=== PATIENT | female | born 1970 | race Caucasian/White ===

== ENCOUNTER → 2020-10-15 | Day surgery (SDC) | payer OTHER ==
[2020-10-13 11:53] LABS: BASOPHILS % 0.7 % (0.0-1.0); EOSINOPHILS # (AUTO) 0.2 (0.0-0.4); EOSINOPHILS % 4.2 % (0.0-6.0); HEMOGLOBIN 12.9 g/dL (12.0-16.0); LYMPHOCYTES # (AUTO) 1.7 (1.0-3.2); MEAN CORPUSCULAR HEMOGLOBIN 28.9 pg (28-32); MEAN CORPUSCULAR HGB CONC 32.3 g/dL (31-35); MEAN CORPUSCULAR VOLUME 89.7 fL (81-99); MONOCYTES # (AUTO) 0.4 (0.2-0.8); MONOCYTES % 9.9 % (4.4-11.3); NEUTROPHILS # (AUTO) 1.7 (2.1-6.9); PLATELET COUNT 216 x10e3/uL (140-360); RED BLOOD COUNT 4.46 x10e6/uL (3.6-5.1); RED CELL DISTRIBUTION WIDTH 13.1 % (11.7-14.4)
[2020-10-13 12:13] LABS: CALCIUM 9.4 mg/dL (8.4-10.2); CREATININE, SERUM 0.62 mg/dL (0.57-1.11)
[~2020-10-15] MED LIST: ACETAMINOPHEN 1000 MG/100 ML 100 ML IV ONE; AMPICILLIN SOD 1 GM/NS 50ML 50 ML IV ONE; B&O 60MG R/S 60 MG SUPP PR ONE; BUPIVACAINE HCL 0.5% INJ 30 ML VIAL INJ ONE; FENTANYL CITRATE/PF 100MCG/2 ML INJ ONE; FLOMAX0.4 MG PO; FOLIC ACID0.4 MG PO; GABAPENTIN100 MG PO; GENTAMICIN 80MG/NS 100 ML 200 ML IV ONE; IOPAMIDOL 300MG/ML 50ML INFUS..BTL IV ONE; LIDOCAINE 2%/ EPINEPHRINE 20ML MDV ONE; LIDOCAINE HCL 2% LOCAL INJ 5 ML SDV VIAL INJ ONE; MIDAZOLAM HCL 2 MG/2 ML VIAL ONE; MOBIC7.5 MG PO; MULTI-VITAMIN1 EACH PO; ONDANSETRON HCL INJ 2MG/ML 2ML 2 MG/ML VIAL ONE; POVIDONE IODINE 0.05% 0.05 % ML PO ONE; PROPOFOL IV EMULSION 10 MG/ML 20 ML VIAL ONE; SEVOFLURANE INHAL SOLN 250 ML PEN BTL ONE; VIT B12 PO; VIT D2 PO; WELLBUTRIN XL150 MG PO
[2020-10-15 11:15] VITALS: BP 121/84
== END | disposition home or self-care (01) ==
LOC: OR 07:49
PROVIDERS: ATTEND Urology
DX: N39.0 Urinary tract infection, site not specified (principal); N36.41 Hypermobility of urethra; N81.10 Cystocele, unspecified; N95.2 Postmenopausal atrophic vaginitis; R27.0 Ataxia, unspecified; N31.2 Flaccid neuropathic bladder, not elsewhere classified; N81.89 Other female genital prolapse; G89.29 Other chronic pain; Z01.810 Encounter for preprocedural cardiovascular examination; Z01.812 Encounter for preprocedural laboratory examination
CPT/HCPCS: 36415; 51102; 52005; 74420; 80048; 85025; 93005; C1758; J0131; J0290; J1580; J2001 ×2; J2250; J2405; J2704; J3010; Q9967